=== PATIENT | male | born 1945 | race African-American/Black ===

== ENCOUNTER 2018-10-17 10:47 | Emergency (ER) | payer OTHER, MEDICARE ==
[2018-10-17] MEDS ORDERED: ASPIRIN 81 MG TABLET, CHEWABLE PO ONE (10:49)
[2018-10-17 11:36] LABS: ABSOLUTE EOSINOPHILS # (AUTO) 0.1 10^3/uL (0.0-0.6); ABSOLUTE MONOCYTES (AUTO) 0.4 10^3/uL (0.1-1.4); ABSOLUTE NEUT (AUTO) 2.2 10^3/uL (1.7-8.2); BASOPHILS % (AUTO) 0.4 % (0-2); EOSINOPHILS % (AUTO) 1.5 % (0-6); HEMATOCRIT 37.4 % (37.9-51.0); HEMOGLOBIN 12.4 g/dL (13.5-17.0); MEAN CORPUSCULAR HEMOGLOBIN 27.6 pg (27.0-33.4); MEAN CORPUSCULAR HGB CONC 33.2 g/dL (32.0-36.0); MEAN CORPUSCULAR VOLUME 83 fl (80-97); MONOCYTES % (AUTO) 7.8 % (3-13); PLATELET COUNT 208 10^3/uL (150-450); RED BLOOD COUNT 4.49 10^6/uL (4.35-5.55); RED CELL DISTRIBUTION WIDTH 15.5 % (11.5-14.0); SEGMENTED NEUTROPHILS % (AUTO) 47.3 % (42-78); TOTAL CELLS COUNTED % (AUTO) 100 %; WHITE BLOOD COUNT 4.7 10^3/uL (4.0-10.5)
--- NOTE | 2018-10-17 11:47 | ER Document Report ---
ED General - General Chief Complaint: Chest Pain Stated Complaint: CHEST DISCOMFORT Time Seen by Provider: 10/17/18 11:07 Primary Care Provider: ABDIAS STOVLAL [Primary Care Provider] - Follow up as needed Notes: 73-year-old male with history of ACS approximately 1-1.5 months ago, hypertension, hyperlipidemia, and cystic kidney disease brought in by ambulance to the emergency department after walking around [place] where he became diaphoretic, pale, dizzy, had a near syncopal episode. He states when he was initially getting out of his vehicle he experienced some back pain. Patient currently denies any chest pain or dyspnea. Denies nausea or vomiting. Patient was seen for his heart attack at [facility] in [place]. He does not know the name of his bowl topper. - Related Data Allergies/Adverse Reactions: No Known Allergies Allergy (Unverified 10/17/18 11:09) Past Medical History - Social History Smoking Status: Unknown if Ever Smoked Family History: Reviewed & Not Pertinent Review of Systems - Review of Systems Constitutional: See HPI EENT: No symptoms reported Cardiovascular: See HPI Respiratory: See HPI Gastrointestinal: See HPI Genitourinary: No symptoms reported Male Genitourinary: No symptoms reported Musculoskeletal: No symptoms reported Skin: No symptoms reported Hematologic/Lymphatic: No symptoms reported Neurological/Psychological: No symptoms reported Physical Exam - Vital signs Vitals: Pulse Ox 97 10/17/18 10:49 - Notes Notes: PHYSICAL EXAMINATION: Reviewed vital signs and charting by RN GENERAL: Alert, interacts well. No acute distress. HEAD: Normocephalic, atraumatic. EYES: Pupils equal, round. Extraocular movements intact. ENT: Oral mucosa moist, tongue midline. NECK: Full range of motion. Supple. Trachea midline. LUNGS: Clear to auscultation bilaterally, no wheezes, rales, or rhonchi. No respiratory distress. HEART: Regular rate and rhythm. Sinus bradycardia. No murmur ABDOMEN: soft, non-tender. Non-distended. Bowel sounds present in all 4 quadrants. no McBurney's point tenderness, no Frye sign. EXTREMITIES: Moves all 4 extremities spontaneously. No edema, No cyanosis. NEUROLOGICAL: Alert and oriented. Normal speech. PSYCH: Normal affect, normal mood. SKIN: Warm, dry, normal turgor. No rashes or lesions noted. Course - Re-evaluation Re-evalutation: 10/17/18 11:46 Well-appearing 73-year-old male presents to the emergency department with dizziness, diaphoresis, near syncopal episode. Patient with recent heart attack 30-45 days ago. EKG showed no evidence of STEMI. CBC complete no evidence of anemia., No leukocytosis. The rest of the labs are pending. Cardiac care set initiated. 10/17/18 14:07 Initial troponin was 0.045, creatinine 2.6. EKG showed no evidence of STEMI. Chest x-ray normal. Called the hospitalist to discuss observation spoke with Dr. Patel and he requested that we get a second troponin with an EKG and then call him back with results. 10/17/18 15:53 Second troponin was the same at 0.045 kg unchanged from previous. I spoke again with Dr. Patel and he agreed to accept the patient for telemetry observation. information technology intern went to discuss patient valuables and he told her he is refusing admission. I went to speak with the patient myself and explained to him the risks of him going home without a period of observation and without follow-up stress testing in the morning. I told him that he could suffer from another heart attack and possibly . I told him it was in his best interest to stay here. He adamantly refused and is leaving AGAINST MEDICAL ADVICE. The patient has chosen to leave the facility against medical advice. The relevant issues have been reviewed and discussed with the patient and family at the bedside. At the time of this assessment there is no indication for involuntary commitment. The patient is alert, oriented, and able to express clearly their reasoning for not wanting to remain in the emergency department for further treatment. The patient is not clinically psychotic, intoxicated, and denies and suicidal ideation. Differential or suspected diagnoses based on medical screening exam: acute coronary syndrome. The patient is aware of the concerning diagnoses and acknowledges understanding of the reasons for the following recommendations: Telemetry observation The following recommendations/services were offered and refused: Telemetry observation The following risks were explained: , permanent disability, loss of func tion Clinical impression: Patient is competent to make decisions regarding the medical that is being offered. 10/17/18 15:58 - Vital Signs Vital signs: Temp Pulse Resp BP Pulse Ox 97.9 F 11 L 138/78 H 99 10/17/18 11:07 10/17/18 15:01 10/17/18 15:01 10/17/18 15:01 - Laboratory Result Diagrams: 10/17/18 11:13 10/17/18 11:13 Laboratory results interpreted by me: 10/17/18 10/17/18 11:13 11:13 Hgb 12.4 L Hct 37.4 L RDW 15.5 H BUN 32 H Creatinine 2.57 H Est GFR ( Amer) 30 L Est GFR (Non-Af Amer) 25 L Creatine Kinase 211 H Discharge - Discharge Clinical Impression: Near syncope, Dizziness Condition: Stable Disposition: AGAINST MEDICAL ADVICE Additional Instructions: He was seen in the emergency department this evening for a near syncopal episode, dizziness, and concerns for a cardiac issue. Your troponin levels were elevated which was concerning for us that you may have had something go on with your heart. You were initially admitted for observatio with the plan to get stress testing in the morning. You are deciding to leave AGAINST MEDICAL ADVICE. There is a chance after leaving that your symptoms could recur, they could get worse, you could have a heart attack, or you could . If you have any symptoms like dizziness, sweating, nausea, chest pain, or any other concerning symptoms please immediately return to the emergency department. [facility]errals: [facility] [Primary [facility] Provider] - Follow up as needed
--- NOTE | 2018-10-17 11:48 | RADIOLOGY REPORT (SQ) ---
EXAM DESCRIPTION: CHEST SINGLE VIEW COMPLETED DATE/TIME: 10/17/2018 11:42 am REASON FOR STUDY: cp COMPARISON: None. EXAM PARAMETERS: NUMBER OF VIEWS: One view. TECHNIQUE: Single frontal radiographic view of the chest acquired. RADIATION DOSE: NA LIMITATIONS: None. FINDINGS: LUNGS AND PLEURA: No opacities, masses or pneumothorax. No pleural effusion. Calcified gr anuloma. MEDIASTINUM AND HILAR STRUCTURES: No masses. Contour normal. HEART AND VASCULAR STRUCTURES: Heart normal in size. Normal vasculature. BONES: No acute findings. HARDWARE: None in the chest. OTHER: No other significant finding. IMPRESSION: NO ACUTE RADIOGRAPHIC FINDING IN THE CHEST. TECHNICAL DOCUMENTATION: JOB ID: [id number] [employer]- All Rights Reserved Reading location - IP/workstation name: [email or web address]
[2018-10-17 11:55] LABS: ALANINE AMINOTRANSFERASE 30 U/L (21-72); ALBUMIN 3.8 g/dL (3.5-5.0); ALKALINE PHOSPHATASE 97 U/L (38-126); ANION GAP 7 (5-19); ASPARTATE AMINO TRANSFERASE 24 U/L (17-59); BILIRUBIN,DIRECT 0.1 mg/dL (0.0-0.4); BILIRUBIN,TOTAL 0.4 mg/dL (0.2-1.3); BLOOD UREA NITROGEN 32 mg/dL (7-20); CALCIUM 9.3 mg/dL (8.4-10.2); CARBON DIOXIDE 30 mmol/L (22-30); CHLORIDE 106 mmol/L (98-107); CREATINE KINASE 211 U/L (55-170); GLUCOSE 103 mg/dL (75-110); POTASSIUM 4.6 mmol/L (3.6-5.0); SODIUM 142.5 mmol/L (137-145); TOTAL PROTEIN 6.5 g/dL (6.3-8.2)
[2018-10-17 12:06] LABS: CREATINE KINASE MB 1.91 ng/mL (<4.55)
[2018-10-17 12:09] LABS: TROPONIN I 0.045 ng/mL
[2018-10-17 16:14] VITALS: BP 173/90
--- NOTE | 2018-10-17 17:13 | EKG REPORT ---
SEVERITY:- ABNORMAL ECG - SINUS RHYTHM NONSPECIFIC IVCD WITH LAD LEFT VENTRICULAR HYPERTROPHY NONSPECIFIC ST-T CHANGES LAFB : Confirmed by: Nirav Shepard MD 17-Oct-2018 17:12:24
--- NOTE | 2018-10-17 17:13 | EKG REPORT ---
SEVERITY:- ABNORMAL ECG - SINUS BRADYCARDIA PROBABLE LEFT ATRIAL ABNORMALITY RBBB AND LAFB LEFT VENTRICULAR HYPERTROPHY : Confirmed by: Nirav Shepard MD 17-Oct-2018 17:12:46
== END 2018-10-17 16:13 | disposition left against medical advice (07) ==
LOC: ER 10:47 → EH 15:54 → UNDOADMOB 15:54 → ER 16:13
DX: R55 Syncope and collapse (principal); R61 Generalized hyperhidrosis; I25.2 Old myocardial infarction; Z53.20 Procedure and treatment not carried out because of patient's decision for unspecified reasons
CPT/HCPCS: 36415; 71045; 80053; 82550; 82553; 84484; 85025; 93005; 93010; 99284